=== PATIENT | female | born 1965 | race Hispanic/Latino ===

== ENCOUNTER 2021-03-25 10:17 | Emergency (ER) | payer OTHER ==
[~2021-03-25] VITALS: Ht 154.9 cm; Wt 68.6 kg
[2021-03-25] MEDS ORDERED: LEVOTHYROXINE50 MCG PO (10:30)
[2021-03-25] MEDS ORDERED: SODIUM CHLORIDE 0.9% 1000ML 1,000 ML IV STA (10:32)
[2021-03-25] MEDS ORDERED: PREDNISONE10 MG PO (10:40)
[2021-03-25] MEDS ORDERED: LORATADINE10 MG PO (10:40)
[2021-03-25] MEDS ORDERED: DIPHENHYDRAMINE25 MG PO (10:40)
[2021-03-25] MEDS ORDERED: FAMOTIDINE20 MG PO (10:40)
[2021-03-25] MEDS ORDERED: DIPHENHYDRAMINE HCL INJ 50 MG/ML VIAL IV ONE (10:45)
[2021-03-25] MEDS ORDERED: METHYLPREDNISOLONE SOD SUCC 125 MG/2ML VIAL IV ONE (10:45)
[2021-03-25] MEDS ORDERED: FAMOTIDINE 20 MG/2 ML VIAL IV NR (10:45)
[2021-03-25] MEDS ORDERED: METHYLPREDNISOLONE SOD SUCC 125 MG/2ML VIAL ONE (10:49)
[2021-03-25] MEDS ORDERED: SODIUM CHLORIDE 0.9% 1000ML 1,000 ML ONE (10:50)
== END 2021-03-25 11:31 | disposition home or self-care (01) ==
LOC: FSED 10:31
DX: L50.0 Allergic urticaria (principal); E03.9 Hypothyroidism, unspecified; K21.9 Gastro-esophageal reflux disease without esophagitis
CPT/HCPCS: 96374; 96375; 99283; J1200; J2930; J7030

== ENCOUNTER 2024-05-18 07:45 | Inpatient (IN) | payer BC ==
[2024-05-13 09:41] LABS: BASOPHILS # (AUTO) 0.2 (0.0-0.1); BASOPHILS % 1.9 % (0.0-1.0); EOSINOPHILS # (AUTO) 0.2 (0.0-0.4); EOSINOPHILS % 2.3 % (0.0-6.0); HEMATOCRIT 41.4 % (34.2-44.1); HEMOGLOBIN 13.2 g/dL (12.0-16.0); LYMPHOCYTES % 38.3 % (18.0-39.1); MEAN CORPUSCULAR HEMOGLOBIN 28.4 pg (28-32); MEAN CORPUSCULAR HGB CONC 31.9 g/dL (31-35); MONOCYTES # (AUTO) 0.5 (0.2-0.8); NEUTROPHILS # (AUTO) 3.9 (2.1-6.9); NEUTROPHILS % 50.1 % (38.7-80.0); PLATELET COUNT 364 x10e3/uL (140-360); RED BLOOD COUNT 4.65 x10e6/uL (3.6-5.1); RED CELL DISTRIBUTION WIDTH 13.8 % (11.7-14.4); WHITE BLOOD COUNT 7.71 x10e3/uL (4.8-10.8)
[2024-05-13 10:03] LABS: ALBUMIN 4.5 g/dL (3.5-5.0); BILIRUBIN,TOTAL 0.4 mg/dL (0.2-1.2); CALCIUM 10.3 mg/dL (8.4-10.2); CREATININE, SERUM 0.79 mg/dL (0.57-1.11)
[~2024-05-18] VITALS: Ht 160 cm; Wt 66.7 kg
[~2024-05-18 07:45] MED LIST: DIPHENHYDRAMINE25 MG PO; FAMOTIDINE20 MG PO; KETOROLAC TROME10 MG PO; LEVOFLOXACIN500 MG PO; LEVOTHYROXINE50 MCG PO; LORATADINE10 MG PO; PREDNISONE10 MG PO
[2024-05-18] MEDS ORDERED: FENTANYL CITRATE/PF 100MCG/2 ML INJ ONE ×2 (09:33→13:32)
[2024-05-18] MEDS ORDERED: ROCURONIUM BROMIDE 1 ML IV ONE ×2 (09:33→11:57)
[2024-05-18] MEDS ORDERED: PROPOFOL IV EMULSION 10 MG/ML 20 ML VIAL ONE ×2 (09:33→11:51)
[2024-05-18] MEDS ORDERED: DEXAMETHASONE SOD PHOS INJ 4 MG/ML SDV ONE (09:33)
[2024-05-18] MEDS ORDERED: LIDOCAINE HCL 2% LOCAL INJ 5 ML SDV VIAL INJ ONE ×2 (09:33→11:52)
[2024-05-18] MEDS ORDERED: HYDROMORPHONE 2MG/ML ONE (09:42)
[2024-05-18] MEDS ORDERED: MIDAZOLAM HCL 2 MG/2 ML VIAL ONE (10:41)
[2024-05-18] MEDS ORDERED: MINERAL OIL STERILE 10ML VIAL ONE (10:55)
[2024-05-18] MEDS ORDERED: KETAMINE HCL INJ 50 MG/ML 10 ML VIAL ONE (11:24)
[2024-05-18] MEDS ORDERED: ACETAMINOPHEN 1000 MG/100 ML 100 ML IV ONE (11:40)
[2024-05-18] MEDS ORDERED: SEVOFLURANE INHAL SOLN 250 ML PEN BTL ONE (11:57)
[2024-05-18] MEDS ORDERED: LACTATED RINGER'S 1,000 ML ONE (13:36)
[2024-05-18] MEDS ORDERED: BUPIVACAINE/EPI 0.5% 30ML SDV-MPF INJ ONE (14:45)
[2024-05-18] MEDS ORDERED: SODIUM CHLORIDE 0.9% INJ 10 ML VIAL ONE (14:45)
[2024-05-18] MEDS ORDERED: NALOXONE HCL INJ 0.4 MG/ML AMP IV PRN (15:15)
[2024-05-18] MEDS ORDERED: ACETAMINOPHEN 1000 MG/100 ML IV PRN (15:15)
[2024-05-18] MEDS: HYDROMORPHONE 0.2MG/ML-SOD CHL 30ML PCA SYRINGE IV PRN (15:55)
[2024-05-18 16:15] VITALS: BP 133/69; PULSE 72; RESP 18; O2SAT 99
[2024-05-18] MEDS: SODIUM CHLORIDE 0.9% 1000ML 1,000 ML IV SCH (17:09)
[2024-05-18 20:00] VITALS: BP 152/80; PULSE 89; RESP 18; TEMP 97.6; O2SAT 100
[2024-05-18] MEDS: SODIUM CHLORIDE 0.9% 250ML IRRIG IR SCH (20:28)
[2024-05-18 21:00] VITALS: BP 152/80; PULSE 89; RESP 18; TEMP 97.6; O2SAT 100
[2024-05-18] MEDS: ONDANSETRON HCL INJ 2MG/ML 2ML 2 MG/ML VIAL IV PRN (22:44)
[2024-05-19] VITALS (10 sets, daily range): BP systolic 103–140; BP diastolic 52–79; PULSE 62–93; RESP 17–20; TEMP 97.8–98.6; O2SAT 94–100
[2024-05-19 05:17] LABS: BASOPHILS % 0.1 % (0.0-1.0); HEMATOCRIT 33.9 % (34.2-44.1); HEMOGLOBIN 10.6 g/dL (12.0-16.0); LYMPHOCYTES % 7.7 % (18.0-39.1); MEAN CORPUSCULAR HEMOGLOBIN 28.1 pg (28-32); MEAN CORPUSCULAR HGB CONC 31.3 g/dL (31-35); MEAN CORPUSCULAR VOLUME 89.9 fL (81-99); MONOCYTES # (AUTO) 1.1 (0.2-0.8); MONOCYTES % 8.6 % (4.4-11.3); NEUTROPHILS # (AUTO) 10.2 (2.1-6.9); NEUTROPHILS % 83.2 % (38.7-80.0); PLATELET COUNT 327 x10e3/uL (140-360); RED BLOOD COUNT 3.77 x10e6/uL (3.6-5.1); RED CELL DISTRIBUTION WIDTH 13.7 % (11.7-14.4); WHITE BLOOD COUNT 12.28 x10e3/uL (4.8-10.8)
[2024-05-19 05:46] LABS: ANION GAP 14.2 mmol/L (8-16); CALCIUM 8.7 mg/dL (8.4-10.2); CREATININE, SERUM 0.77 mg/dL (0.57-1.11); POTASSIUM 4.2 mmol/L (3.5-5.1)
[2024-05-20] VITALS (9 sets, daily range): BP systolic 116–147; BP diastolic 59–82; PULSE 89–110; RESP 16–19; TEMP 97.8–100.1; O2SAT 92–99
[2024-05-20 05:42] LABS: BASOPHILS # (AUTO) 0.1 (0.0-0.1); BASOPHILS % 0.6 % (0.0-1.0); EOSINOPHILS % 0.2 % (0.0-6.0); HEMATOCRIT 29.9 % (34.2-44.1); HEMOGLOBIN 9.4 g/dL (12.0-16.0); LYMPHOCYTES # (AUTO) 2.1 (1.0-3.2); LYMPHOCYTES % 16.7 % (18.0-39.1); MEAN CORPUSCULAR HEMOGLOBIN 28.5 pg (28-32); MEAN CORPUSCULAR HGB CONC 31.4 g/dL (31-35); MEAN CORPUSCULAR VOLUME 90.6 fL (81-99); MONOCYTES # (AUTO) 1.2 (0.2-0.8); MONOCYTES % 9.6 % (4.4-11.3); NEUTROPHILS # (AUTO) 9.1 (2.1-6.9); NEUTROPHILS % 72.5 % (38.7-80.0); PLATELET COUNT 278 x10e3/uL (140-360)
[2024-05-20 06:03] LABS: ANION GAP 9.5 mmol/L (8-16); CALCIUM 8.2 mg/dL (8.4-10.2); CREATININE, SERUM 0.68 mg/dL (0.57-1.11); POTASSIUM 3.5 mmol/L (3.5-5.1)
[2024-05-20] MEDS: ACETAMINOPHEN 1000 MG/100 ML IV PRN (11:13)
[2024-05-20] MEDS: BISACODYL 10 MG SUPP PR ONE (20:46)
[2024-05-21] VITALS (10 sets, daily range): BP systolic 111–150; BP diastolic 60–80; PULSE 87–100; RESP 16–18; TEMP 97.9–99; O2SAT 90–96
[2024-05-21 05:17] LABS: BASOPHILS # (AUTO) 0.1 (0.0-0.1); BASOPHILS % 0.8 % (0.0-1.0); EOSINOPHILS # (AUTO) 0.2 (0.0-0.4); EOSINOPHILS % 1.5 % (0.0-6.0); HEMATOCRIT 29.2 % (34.2-44.1); HEMOGLOBIN 9.2 g/dL (12.0-16.0); LYMPHOCYTES # (AUTO) 2.6 (1.0-3.2); MEAN CORPUSCULAR HEMOGLOBIN 28.3 pg (28-32); MEAN CORPUSCULAR HGB CONC 31.5 g/dL (31-35); MEAN CORPUSCULAR VOLUME 89.8 fL (81-99); MONOCYTES % 8.5 % (4.4-11.3); NEUTROPHILS # (AUTO) 7.3 (2.1-6.9); NEUTROPHILS % 65.7 % (38.7-80.0); PLATELET COUNT 277 x10e3/uL (140-360); RED BLOOD COUNT 3.25 x10e6/uL (3.6-5.1); RED CELL DISTRIBUTION WIDTH 13.5 % (11.7-14.4); WHITE BLOOD COUNT 11.18 x10e3/uL (4.8-10.8)
[2024-05-21 05:39] LABS: ANION GAP 14.2 mmol/L (8-16); CALCIUM 8.4 mg/dL (8.4-10.2); CREATININE, SERUM 0.62 mg/dL (0.57-1.11)
[2024-05-21 05:40] LABS: POTASSIUM 3.2 mmol/L (3.5-5.1)
[2024-05-21] MEDS: BISACODYL 10 MG SUPP PR ONE (10:27)
[2024-05-21] MEDS ORDERED: HYDROMORPHONE 1MG/1ML INJ IV PRN (17:30)
[2024-05-21] MEDS: HYDROCODONE/APAP 7.5MG-325MG 1 EA TAB PO PRN (21:58)
[2024-05-22] VITALS (9 sets, daily range): BP systolic 117–158; BP diastolic 67–78; PULSE 70–97; RESP 16–18; TEMP 97.7–98.5; O2SAT 90–98
[2024-05-23] VITALS (7 sets, daily range): BP systolic 120–144; BP diastolic 71–78; PULSE 69–100; RESP 17–20; TEMP 97.9–98.7; O2SAT 90–100
== END 2024-05-23 18:45 | disposition home or self-care (01) | DRG 337 ==
LOC: OR 07:45 → PACU V 15:02 → MED/SURG 16:15
PROVIDERS: ADMIT Surgery; ATTEND Surgery
PROC: 0DN84ZZ Release Small Intestine, Percutaneous Endoscopic Approach (ICD-10-PCS; 2024-05-18)
PROC: 0DSM4ZZ Reposition Descending Colon, Percutaneous Endoscopic Approach (ICD-10-PCS; principal; 2024-05-18 10:51)
DX: Z43.3 Encounter for attention to colostomy (principal); K66.0 Peritoneal adhesions (postprocedural) (postinfection)
CPT/HCPCS: 36415; 80048; 80053; 85025; 88307; 93005; 94799; 99252; J1100; J2003; J2250; J2405; J2470; J2543; J7030

== ENCOUNTER 2025-02-03 21:03 | Emergency (ER) | payer BC ==
[~2025-02-03] VITALS: Ht 154.9 cm; Wt 67.1 kg
[2025-02-03] MEDS: KETOROLAC TROMETHAMINE 30 MG/ML VIAL IV STA (22:05)
[2025-02-03 22:15] VITALS: PULSE 70; RESP 18; TEMP 98.6
[2025-02-03 22:49] VITALS: BP 145/77; PULSE 70; RESP 18; TEMP 98.6; O2SAT 100
== END 2025-02-03 22:20 | disposition home or self-care (01) ==
LOC: FSED 21:10
DX: R07.89 Other chest pain (principal); E11.9 Type 2 diabetes mellitus without complications; E03.9 Hypothyroidism, unspecified; K21.9 Gastro-esophageal reflux disease without esophagitis; Z98.0 Intestinal bypass and anastomosis status
CPT/HCPCS: 71045; 80053; 84484; 85025; 93005; 99284; J1885